=== PATIENT | male | born 1950 | race Native Hawaiian/Other Pacific Islander ===

== ENCOUNTER 2017-05-30 08:45 | Outpatient (CLI) | payer OTHER ==
[2017-05-30 10:29] LABS: POTASSIUM 4.4 mmol/L (3.6-5.2); SODIUM 141 mmol/L (136-145)
== END 2017-05-30 19:20 | disposition home or self-care (01) ==
LOC: US 08:45
PROVIDERS: Internal Medicine Nephrology
DX: R80.1 Persistent proteinuria, unspecified (principal)
CPT/HCPCS: 36415; 80069; 81000; 82570; 82784; 84155; 86039; 86335; 86803